=== PATIENT | male | born 1950 | race Hispanic/Latino ===

== ENCOUNTER 2019-08-22 20:53 | Emergency (ER) | payer MEDICARE ==
[~2019-08-22] VITALS: Ht 165.1 cm; Wt 65.8 kg
--- NOTE | 2019-08-22 22:07 | Emergency Department Note ---
History of Present Illnes History of Present Illness Chief Complaint: COVID PUI History of Present Illness This is a 68 year old male 4 days of fever myalgias. Historian: Patient Onset (how long ago): day(s) Radiation: Reports non-radiation Severity: moderate Onset quality: gradual Duration (how long): day(s) (4) Timing of current episode: constant Progression: worsening Chronicity: new Associated symptoms: Reports fever/chills, Reports malaise Treatments prior to arrival: none Past Medical/Family History Physician Review I have reviewed the patient's past medical and family history. Any updates have been documented here. Past Medical History Recent Fever: Yes Clinical Suspicion of Infectio: Yes New/Unexplained Change in Ment: No Past Medical History: None Past Surgical History: None Social History Smoking Cessation: Former smoker Review of Systems Review of Systems Constitutional: Reports fever, Reports malaise, Reports weakness EENTM: Reports no symptoms Cardiovascular: Reports no symptoms Respiratory: Reports no symptoms Gastrointestinal: Reports no symptoms Genitourinary: Reports no symptoms Musculoskeletal: Reports no symptoms Integumentary: Reports no symptoms Neurological: Reports no symptoms Psychological: Reports no symptoms Endocrine: Reports no symptoms Hematological/Lymphatic: Reports no symptoms Physical Exam Physical Exam CONSTITUTIONAL Constitutional: Present well-developed, Present well-nourished HENT HENT: Present normocephalic, Present atraumatic, Present oropharynx clear/moist, Present nose normal HENT L/R: Present left ext ear normal, Present right ext ear normal EYES Eyes: Reports PERRL, Reports conjunctivae normal NECK Neck: Present ROM normal PULMONARY Pulmonary: Present effort normal, Present breath sounds normal CARDIOVASCULAR Cardiovascular: Present regular rhythm, Present heart sounds normal, Present capillary refill normal, Present normal rate GASTROINTESTINAL Abdominal: Present soft, Present nontender, Present bowel sounds normal GENITOURINARY Genitourinary: Present exam deferred SKIN Skin: Present warm, Present dry MUSCULOSKELETAL Musculoskeletal: Present ROM normal NEUROLOGICAL Neurological: Present alert, Present oriented x 3, Present no gross motor or sensory deficits PSYCHOLOGICAL Psychological: Present mood/affect normal, Present judgement normal Procedures 12 Lead ECG Interpretation ECG Interpretation : ECG: ECG 1 Cyber Incident Handler: Interpreted by ED physician Date: Aug 22, 2019 Time: 22:24 Prior ECG tracings: reviewed Rhythm: sinus rhythm Rate: normal BPM: 75 QRS axis: normal ST segments normal: Yes T waves normal: Yes Pacin% capture Clinical Impression: normal ECG Assessment & Plan Medical Decision Making MDM 68 yom with fever and myalgias. (+) contact with family members with similiar symptoms. COVID-19 highly suspected but testing deferred secondary to stable vital signs and high oxygen saturation on RA. Patient to be given Rx Azithromycin and albuterol. Patient to be given resources for outpatient testing centers Assessment & Plan Final Impression: (1) Upper respiratory infection Depart Disposition: HOME, SELF-CARE FEDERICO MARIE DO Aug 22, 2019 22:07
== END 2019-08-22 22:15 | disposition home or self-care (01) ==
LOC: ER 21:30
DX: J06.9 Acute upper respiratory infection, unspecified (principal); R50.9 Fever, unspecified; M79.10 Myalgia, unspecified site
CPT/HCPCS: 93005; 99282

== ENCOUNTER 2019-10-11 13:21 | Emergency (ER) | payer MEDICARE ==
[~2019-10-11] VITALS: Ht 165.1 cm; Wt 65.8 kg
[2019-10-11] MEDS ORDERED: ASPIRIN 81 MG CHEW TAB PO ONE (13:45)
[2019-10-11] MEDS ORDERED: SODIUM CHLORIDE 0.9% 1000ML 1,000 ML IV SCH (13:45)
[2019-10-11 13:59] LABS: BASOPHILS # (AUTO) 0.1 (0.0-0.1); BASOPHILS % 0.8 % (0.0-1.0); EOSINOPHILS # (AUTO) 0.2 (0.0-0.4); HEMATOCRIT 46.7 % (38.2-49.6); HEMOGLOBIN 16.1 g/dL (14.0-18.0); LYMPHOCYTES # (AUTO) 2.2 (1.0-3.2); LYMPHOCYTES % 29.7 % (18.0-39.1); MEAN CORPUSCULAR HEMOGLOBIN 30.3 pg (28-32); MEAN CORPUSCULAR HGB CONC 34.5 g/dL (31-35); MEAN CORPUSCULAR VOLUME 87.9 fL (81-99); MONOCYTES # (AUTO) 0.7 (0.2-0.8); MONOCYTES % 9.1 % (4.4-11.3); NEUTROPHILS # (AUTO) 4.4 (2.1-6.9); PLATELET COUNT 177 x10e3/uL (140-360); RED BLOOD COUNT 5.31 x10e6/uL (4.3-5.7); RED CELL DISTRIBUTION WIDTH 12.6 % (11.7-14.4)
[2019-10-11 14:22] LABS: ALANINE AMINOTRANSFERASE 32 IU/L (0-55); ALBUMIN 4.4 g/dL (3.5-5.0); ALBUMIN/GLOBULIN RATIO 1.2 (0.8-2.0); ALKALINE PHOSPHATASE 83 IU/L (40-150); ANION GAP 15.2 mmol/L (8-16); BLOOD UREA NITROGEN 11 mg/dL (7-26); BUN/CREATININE RATIO 11 (6-25); CALCIUM 9.3 mg/dL (8.4-10.2); CARBON DIOXIDE 23 mmol/L (22-29); CHLORIDE 105 mmol/L (98-107); CREATINE KINASE 116 IU/L (30-200); CREATININE, SERUM 1.01 mg/dL (0.72-1.25); EST GLOMERULAR FILTRATION RATE > 60 ML/MIN (60-); GLUCOSE 92 mg/dL (74-118); POTASSIUM 4.2 mmol/L (3.5-5.1); SODIUM 139 mmol/L (136-145)
[2019-10-11] MEDS ORDERED: KETOROLAC TROMETHAMINE 30 MG/ML VIAL IV STA (14:40)
[2019-10-11] MEDS ORDERED: IOPAMIDOL 370 MG/ML 200 ML INFUS..BTL INJ ONE (14:45)
[2019-10-11] MEDS ORDERED: SODIUM CHLORIDE 0.9% 50ML 50 ML ONE (14:45)
--- NOTE | 2019-10-11 15:00 | Emergency Department Note ---
History of Present Illnes History of Present Illness Chief Complaint: Chest Pain History of Present Illness This is a 69 year old male WITH RECENT COVID19+ FOR WHICH HE QUARANTINED AT HOME, C/O INTERMITTENT LEFT SIDE CHEST PAIN DESCRIBED SHARP THAT RADIATES TO THE BACK AND ALSO C/O OF BURNING PAIN TO HEAD - SYMPTOMS CO NTINUOUS FOR 3 WEEKS. 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: No Onset (how long ago): week(s) (3) Location: ENTIRE HEAD, LEFT CHEST Quality: BURNING PAIN TO HEAD, SHARP CP Radiation: Reports back Severity: moderate Onset quality: gradual Duration (how long): week(s) Timing of current episode: constant Progression: waxing and waning Chronicity: recurrent Context: Reports recent illness Relieving factors: none Associated symptoms: Reports chest pain, Reports headaches, Reports other (HE HAD LOST SENSE OF SMELL AND TASTE, SAYS IT IS SLOWING RETURNING); Denies cough, Denies fever/chills, Denies shortness of breath, Denies syncope, Denies weakness Treatments prior to arrival: none Past Medical/Family History Physician Review I have reviewed the patient's past medical and family history. Any updates have been documented here. Past Medical History Recent Fever: No Clinical Suspicion of Infectio: No New/Unexplained Change in Ment: No Past Medical History: None Past Surgical History: Appendectomy Social History Smoking Cessation: Never Smoker Counseling Performed: No Alcohol Use: None Any Illegal Drug Use: No TB Exposure/Symptoms: No Physically hurt or threatened: No Family History Family history of heart diseas: No Other Any Pre-Existing Lines (PICC,: No Review of Systems Review of Systems Constitutional: Reports no symptoms EENTM: Reports no symptoms Cardiovascular: Reports as per HPI Respiratory: Reports no symptoms Gastrointestinal: Reports no symptoms Genitourinary: Reports no symptoms Musculoskeletal: Reports no symptoms Integumentary: Reports no symptoms Neurological: Reports as per HPI, Reports headache Psychological: Reports no symptoms Endocrine: Reports no symptoms Hematological/Lymphatic: Reports no symptoms Physical Exam Related Data Allergies: Coded Allergies: No Known Allergies (Unverified , 10/11/19) Triage Vital Signs Vital Signs Date Time Temp Pulse Resp B/P (MAP) Pulse Ox O2 Delivery O2 Flow Rate FiO2 10/11/19 13:35 98.3 67 18 148/86 99 Room Air Vital signs reviewed: Yes Physical Exam CONSTITUTIONAL Constitutional: Present well-developed, Present well-nourished HENT HENT: Present normocephalic, Present atraumatic, Present oropharynx clear/moist, Present nose normal HENT L/R: Present left ext ear normal, Present right ext ear normal EYES Eyes: Reports PERRL, Reports conjunctivae normal NECK Neck: Present ROM normal PULMONARY Pulmonary: Present effort normal, Present breath sounds normal CARDIOVASCULAR Cardiovascular: Present regular rhythm, Present heart sounds normal, Present capillary refill normal, Present normal rate, Present other (REPRODUCIBLE TENDERNESS LEFT ANTERIOR CHEST WALL) GASTROINTESTINAL Abdominal: Present soft, Present nontender, Present bowel sounds normal GENITOURINARY Genitourinary: Present exam deferred SKIN Skin: Present warm, Present dry MUSCULOSKELETAL Musculoskeletal: Present ROM normal NEUROLOGICAL Neurological: Present alert, Present oriented x 3, Present no gross motor or sensory deficits PSYCHOLOGICAL Psychological: Present mood/affect normal, Present judgement normal Results Laboratory Result Diagram: 10/11/19 1319 10/11/19 1319 Laboratory Laboratory Tests Test 10/11/19 13:19 White Blood Count 7.51 x10e3/uL (4.8-10.8) Red Blood Count 5.31 x10e6/uL (4.3-5.7) Hemoglobin 16.1 g/dL (14.0-18.0) Hematocrit 46.7 % (38.2-49.6) Mean Corpuscular Volume 87.9 fL (81-99) Mean Corpuscular Hemoglobin 30.3 pg (28-32) Mean Corpuscular Hemoglobin Concent 34.5 g/dL (31-35) Red Cell Distribution Width 12.6 % (11.7-14.4) Platelet Count 177 x10e3/uL (140-360) Neutrophils (%) (Auto) 58.0 % (38.7-80.0) Lymphocytes (%) (Auto) 29.7 % (18.0-39.1) Monocytes (%) (Auto) 9.1 % (4.4-11.3) Eosinophils (%) (Auto) 2.0 % (0.0-6.0) Basophils (%) (Auto) 0.8 % (0.0-1.0) Neutrophils # (Auto) 4.4 (2.1-6.9) Lymphocytes # (Auto) 2.2 (1.0-3.2) Monocytes # (Auto) 0.7 (0.2-0.8) Eosinophils # (Auto) 0.2 (0.0-0.4) Basophils # (Auto) 0.1 (0.0-0.1) Absolute Immature Granulocyte (auto 0.03 x10e3/uL (0-0.1) Sodium Level 139 mmol/L (136-145) Potassium Level 4.2 mmol/L (3.5-5.1) Chloride Level 105 mmol/L (98-107) Carbon Dioxide Level 23 mmol/L (22-29) Anion Gap 15.2 mmol/L (8-16) Blood Urea Nitrogen 11 mg/dL (7-26) Creatinine 1.01 mg/dL (0.72-1.25) Estimat Glomerular Filtration Rate > 60 ML/MIN (60-) BUN/Creatinine Ratio 11 (6-25) Glucose Level 92 mg/dL (74-118) Calcium Level 9.3 mg/dL (8.4-10.2) Total Bilirubin 0.6 mg/dL (0.2-1.2) Aspartate Amino Transf (AST/SGOT) 31 IU/L (5-34) Alanine Aminotransferase (ALT/SGPT) 32 IU/L (0-55) Alkaline Phosphatase 83 IU/L (40-150) Creatine Kinase 116 IU/L (30-200) Creatine Kinase MB 2.30 ng/mL (0-5.0) Troponin I < 0.001 ng/mL (0-0.300) Total Protein 8.0 g/dL (6.5-8.1) Albumin 4.4 g/dL (3.5-5.0) Globulin 3.6 g/dL (2.3-3.5) Albumin/Globulin Ratio 1.2 (0.8-2.0) Lab results reviewed: Yes Imaging Imaging results reviewed: Yes Impressions EXAM: CT Chest WITH contrast- Pulmonary Embolism Protocol INDICATION: Chest pain COMPARISON: None TECHNIQUE: Chest was scanned utilizing a multidetector helical scanner from the lung apex through the level of the diaphragm after administration of IV contrast. Thin section reconstructions were obtained with special concentration on the pulmonary arteries. Coronal and sagittal reformations were obtained. Pulmonary embolism protocol was performed. IV CONTRAST: 100 cc of Isovue 370 RADIATION DOSE: Total DLP: 561 mGy*cm Dose modulation, iterative reconstruction, and/or weight based adjustment of the mA/kV was utilized to reduce the radiation dose to as low as reasonably achievable. COMPLICATIONS: None FINDINGS: LINES/ TUBES: None. PULMONARY ARTERIES: No filling defect is identified within the pulmonary arteries to the segmental level. The subsegmental pulmonary arteries are not well opacified. Main pulmonary artery measures 1.9 cm in diameter. No right heart strain LUNGS AND AIRWAYS: The central airways are patent. No focal consolidation or pulmonary edema. 4 mm right upper lobe pulmonary nodule (series 3 image 39). 5 mm (image 57) and 4 mm (image 85) left fissural nodules. PLEURA: The pleural spaces are clear. HEART AND MEDIASTINUM: The thyroid gland is normal. No mediastinal, hilar or axillary lymphadenopathy. The heart is normal in size.. There is no pericardial effusion. Mild aortic atherosclerotic calcifications.. UPPER ABDOMEN: No acute findings in the upper abdomen. BONES: The visualized bony thorax is within normal limits. SOFT TISSUES: Unremarkable. IMPRESSION: No pulmonary embolism. No focal pneumonia or pulmonary edema. Bilateral pulmonary nodules measure up to 5 mm. If the patient is low risk, no further follow-up imaging is necessary. If the patient is high risk, follow-up chest CT in 12 months is optional. Signed by: Pam Esposito MD on 10/11/2019 3:[address] BRAIN WO HISTORY: Headache COMPARISON: None. Technique: Noncontrast axial scans were obtained from skull base to the vertex. Coronal and sagittal reconstructions obtained from the axial data. One or more of the following dose reduction techniques were used: Automated exposure control, adjustment of the mA and/or kV according to patient size, and/or utilization of iterative reconstruction technique. DISCUSSION: Scalp/Skull: Unremarkable. Brain sulci: Mildly prominent. Ventricles: Compensatory dilatation. Extra-axial spaces: No masses or fluid collections. Carotid siphon calcifications are present. Parenchyma: Mild bilateral deep white matter hypodensity is likely chronic microvascular ischemic change. Otherwise, no masses, hemorrhage, or large vascular territory acute infarct. Dural sinuses: No abnormal densities. Sellar/Suprasellar region: Intact. Skull base: Intact. Incidental findings: None. IMPRESSION: 1. No acute intracranial abnormalities. 2. Mild supratentorial chronic microvascular ischemic change. Mild generalized cerebral volume loss. Signed by: Dr. Mike Hernandez M.D. on 10/11/2019 3:08 PM Procedures 12 Lead ECG Interpretation ECG Interpretation : ECG: ECG 1 Electric Golf Cart Repairer: Interpreted by ED physician Date: Oct 11, 2019 Time: 13:38 Rhythm: sinus rhythm Rate: normal (69) QRS axis: normal ST segments normal: Yes T waves normal: Yes Clinical Impression: normal ECG Assessment & Plan Medical Decision Making MDM RECENT COVID19 C/O HEADACHES AND CP - CHECK CBC, CHEM, ECG, CARDIAC MARKERS, CT CHEST, CT BRAIN TO EVALUATE FOR STEMI/NSTEMI, PULM EMBOLUS, CEREBRAL BLEED/SDH/SAH/EPIDURAL, ELECTROLYTE ABNL, RENAL INSUFF Reassessment Reassessment DC HOME, NAPROSYN, FIORICET, F/U PCP Assessment & Plan Final Impression: (1) Headache (2) Atypical chest pain Depart Disposition: HOME, SELF-CARE Last Vital Signs Date Time Temp Pulse Resp B/P (MAP) Pulse Ox O2 Delivery O2 Flow Rate FiO2 10/11/19 14:30 63 16 121/79 99 Room Air 10/11/19 13:57 98.4 Medications in the ED Aspirin 81 mg PRN ONCE PO Last administered on 10/11/19at 14:06; Admin Dose 81 MG; Start 10/11/19 at 13:45; Stop 10/11/19 at 14:05; Status DC Sodium Chloride 1,000 ml @ 0 mls/hr Q0M IV Last administered on 10/11/19at 14:06; Admin Dose 999 MLS/HR; Start 10/11/19 at 13:45; Stop 10/11/19 at 16:00 Sodium Chloride 50 ml @ ud STK-MED ONCE .ROUTE ; Start 10/11/19 at 14:45; Stop 10/11/19 at 14:39; Status DC Iopamidol 74,000 mg STK-MED ONCE INJ ; Start 10/11/19 at 14:45; Stop 10/11/19 at 14:39; Status DC Ketorolac Tromethamine 30 mg ONCE STAT IV ; Start 10/11/19 at 14:40; Stop 10/11/19 at 14:45; Status DC IVONNE DIETRICH MD Oct 11, 2019 15:00
--- NOTE | 2019-10-11 15:12 | Diagnostic Imaging Report ---
CT BRAIN WO HISTORY: Headache COMPARISON: None. Technique: Noncontrast axial scans were obtained from skull base to the vertex. Coronal and sagittal reconstructions obtained from the axial data. One or more of the following dose reduction techniques were used: Automated exposure control, adjustment of the mA and/or kV according to patient size, and/or utilization of iterative reconstruction technique. DISCUSSION: Scalp/Skull: Unremarkable. Brain sulci: Mildly prominent. Ventricles: Compensatory dilatation. Extra-axial spaces: No masses or fluid collections. Carotid siphon calcifications are present. Parenchyma: Mild bilateral deep white matter hypodensity is likely chronic microvascular ischemic change. Otherwise, no masses, hemorrhage, or large vascular territory acute infarct. Dural sinuses: No abnormal densities. Sellar/Suprasellar region: Intact. Skull base: Intact. Incidental findings: None. IMPRESSION: 1. No acute intracranial abnormalities. 2. Mild supratentorial chronic microvascular ischemic change. Mild generalized cerebral volume loss. Signed by: Dr. Mike Hernandez M.D. on 10/11/2019 3:08 PM
--- OUTSIDE RECORDS SUMMARY | 2019-10-11 15:19 | XMS REPORT | Continuity of Care Document ---
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 Social History Social Habit Start Date Stop Date Quantity Comments Source Sex Assigned At 1950 00:00:00 1950 00:[birth year]:00 Male [facility] Medications This patient has no known medications. Vital Signs Vital Name Observation Time Observation Value Comments Source Weight 2019-08-22 22:02:00 145 [lb_av] [facility] BMI (Body Mass Index) 2019-08-22 22:02:00 24.1 kg/m2 [facility] Procedures This patient has no known procedures. Plan of Care Planned Activity Planned Date Details Comments Source Instructions Upper Respiratory Infection - Adult [facility] Encounters Start Date/Time End Date/Time Encounter Type Admission Type Attendi [facility] Care Department Encounter ID Source 2019-09-03 00:00:00 2019-09-03 00:00:00 Telephone Irving Smith [facility] [id number] 2019-08-22 21:30:00 2019-08-22 22:15:00 Departed Emergency Room [facility] [id number] [facility] Results Test Description Test Time Test Comments Results Result Comments Source CT BRAIN WO 2019-10-11 15:04:00 [facility] [address] [address] Patient Name: TRINO BROWN MR #: [id number] : 1950 Age/Sex: 69/M Req #: [id number] Adm Physician: Ordered by: IVONNE DIETRICH MD Report #: [id number] Location: ER Room/Bed: Procedure: [id number] CT/CT BRAIN WO Exam Date: 10/11/19 Exam Time: 1440 REPORT STATUS: Signed CT BRAIN WO HISTORY: Headache COMPARISON: None. Technique: Noncontrast axial scans were obtained from skull base to the vertex. Coronal and sagittal reconstructions obtained from the axial data. One or more of the following dose reduction techniques were used: Automated exposure control, adjustment of the mA and/or kV according to patient size, and/or utilization of iterative reconstruction technique. DISCUSSION: Scalp/Skull: Unremarkable. Brain sulci: Mildly prominent. Ventricles: Compensatory dilatation. Extra-axial spaces: No masses or fluid collections. Carotid siphon calcifications are present. Parenchyma: Mild bilateral deep white matter hypodensity is likely chronic microvascular ischemic change. Otherwise, no masses, hemorrhage, or large vascular territory acute infarct. Dural sinuses: No abnormal densities. Sellar/Suprasellar region: Intact. Skull base: Intact. Incidental findings: None. IMPRESSION: 1. No acute intracranial abnormalities. 2. Mild supratentorial chronic microvascular ischemic change. Mild generalized cerebral volume loss. Signed by: Dr. Mike Hernandez M.D. on 10/11/2019 3:08 PM Dictated By: MIKE HERNANDEZ MD 07 Transcribed By: [place] on 10/11/198 COPY TO: IVONNE DIETRICH MD - DUP AO/IVC/IV/BPG COMP 2018-11-16 15:01:00 N daryn: TRINO BROWN [facility] : 1950 Age/S: 68 / M [address] [facility] Unit #: [id number] Loc: [place] [address] Phys: Irving Ramirez DO Acct: [id number] Dis Date: Status: REG CLI PHONE #: [phone] Exam Date: 11/16/2018 1246 FAX #: [phone] Reason: TABAC[employer] USE EXAMS: CPT CODE: [id number] DUP AO/IVC/IV/BPG COMP 91496 EXAM: Duplex sonography of the abdominal aorta; INFORMATION: Tobacco use, screening for AAA; TECHNIQUE: Transabdominal grayscale imaging was combined with color Doppler sonography and spectral analysis. IMPRESSION: The abdominal aorta is imaged in its entire length. It is of normal caliber measuring 1.7 cm in diameter proximally and 1.3 cm in diameter distally. No evidence of AAA. at 1501 Reported and signed by: Christian Castro M.D. CC: Irving Ramirez DO Technologist: GLORIA JOHNSON RT(R),RDMS Trng[employer] Date/Time: 11/16/2018 (1503) Christoph Orig Print D/T: S: 11/16/2018 (8122) Probe: PAGE 1 Signed Report
--- NOTE | 2019-10-11 15:26 | Diagnostic Imaging Report ---
EXAM: CT Chest WITH contrast- Pulmonary Embolism Protocol INDICATION: Chest pain COMPARISON: None TECHNIQUE: Chest was scanned utilizing a multidetector helical scanner from the lung apex through the level of the diaphragm after administration of IV contrast. Thin section reconstructions were obtained with special concentration on the pulmonary arteries. Coronal and sagittal reformations were obtained. Pulmonary embolism protocol was performed. IV CONTRAST: 100 cc of Isovue 370 RADIATION DOSE: Total DLP: 561 mGy*cm Dose modulation, iterative reconstruction, and/or weight based adjustment of the mA/kV was utilized to reduce the radiation dose to as low as reasonably achievable. COMPLICATIONS: None FINDINGS: LINES/ TUBES: None. PULMONARY ARTERIES: No filling defect is identified within the pulmonary arteries to the segmental level. The subsegmental pulmonary arteries are not well opacified. Main pulmonary artery measures 1.9 cm in diameter. No right heart strain LUNGS AND AIRWAYS: The central airways are patent. No focal consolidation or pulmonary edema. 4 mm right upper lobe pulmonary nodule (series 3 image 39). 5 mm (image 57) and 4 mm (image 85) left fissural nodules. PLEURA: The pleural spaces are clear. HEART AND MEDIASTINUM: The thyroid gland is normal. No mediastinal, hilar or axillary lymphadenopathy. The heart is normal in size.. There is no pericardial effusion. Mild aortic atherosclerotic calcifications.. UPPER ABDOMEN: No acute findings in the upper abdomen. BONES: The visualized bony thorax is within normal limits. SOFT TISSUES: Unremarkable. IMPRESSION: No pulmonary embolism. No focal pneumonia or pulmonary edema. Bilateral pulmonary nodules measure up to 5 mm. If the patient is low risk, no further follow-up imaging is necessary. If the patient is high risk, follow-up chest CT in 12 months is optional. Signed by: Pam Esposito MD on 10/11/2019 3:22 PM
[2019-10-11 15:46] VITALS: BP 116/83
== END 2019-10-11 15:52 | disposition home or self-care (01) ==
LOC: ER 13:40
DX: R07.89 Other chest pain (principal); R51 Headache; R91.8 Other nonspecific abnormal finding of lung field
CPT/HCPCS: 36415; 70450; 71260; 80053; 82550; 82553; 84484; 85025; 93005; 99284; J1885; J7030; Q9967